=== PATIENT | female | born 1950 | race Hispanic/Latino ===

== ENCOUNTER 2020-05-05 00:04 | Emergency (ER) | payer MEDICARE ==
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
[2020-05-05 02:46] LABS: Basophils % (Auto) 0.7 % (0.0-1.8); Eosinophils # (Auto) 0.1 K/mm3 (0.0-0.4); Eosinophils % (Auto) 2.1 % (0.0-4.3); Hematocrit 38.3 % (30.3-42.9); Hemoglobin 12.6 gm/dl (10.1-14.3); Lymphocytes # (Auto) 1.6 K/mm3 (1.2-5.4); Lymphocytes % (Auto) 33.8 % (13.4-35.0); Mean Corpuscular HGB Conc 33 % (30-34); Mean Corpuscular Volume 91 fl (79-97); Monocytes # (Auto) 0.4 K/mm3 (0.0-0.8); Monocytes % (Auto) 9.2 % (0.0-7.3); Platelet Count 293 K/mm3 (140-440); Red Blood Count 4.23 M/mm3 (3.65-5.03)
[2020-05-05 02:58] LABS: Bacteria,Urine 1+ /HPF (Negative); Bilirubin,Urine NEG (Negative); Blood,Urine NEG (Negative); Color,Urine Straw (Yellow); Mucus,Urine FEW /HPF; Protein,Urine <15 mg/dL mg/dL (Negative); Urobilinogen,Urine < 2.0 mg/dL (<2.0)
[2020-05-05 02:59] LABS: Amphetamine Screen,Urine PRESUMPTIVE NEGATIVE; Benzodiazepines Screen,Urine PRESUMPTIVE NEGATIVE; Cannabinoid Screen,Urine PRESUMPTIVE POSITIVE; Cocaine Screen,Urine PRESUMPTIVE NEGATIVE; Methadone Screen,Urine PRESUMPTIVE NEGATIVE; Opiate Screen,Urine PRESUMPTIVE NEGATIVE
[2020-05-05 03:00] LABS: Alanine Aminotransferase 9 units/L (7-56); Albumin 4.1 g/dL (3.9-5); Blood Urea Nitrogen 11 mg/dL (7-17); Calcium 9.1 mg/dL (8.4-10.2); Hemolysis Index 2
[2020-05-05 03:04] LABS: BUN/Creatinine Ratio 18
--- NOTE | 2020-05-05 03:07 | XRay Report ---
CHEST 1 VIEW INDICATION: "Lung pain" COMPARISON: None FINDINGS: Support devices: None Heart: Normal Lungs/Pleura: No acute pulmonary or pleural findings. IMPRESSION: 1. No acute disease. Signer Name: Dread Philip MD Signed: 05/05/2020 3:03 AM Workstation Name: [id number]
[2020-05-05 03:11] LABS: INR 0.96 (0.87-1.13)
[2020-05-05] MEDS ORDERED: ZIPRASIDONE MESYLATE 20 MG VIAL IM PRN (05:44)
[2020-05-05] MEDS ORDERED: VALSARTAN 40 MG TAB PO SCH (10:00)
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
[2020-05-05] MEDS ORDERED: risperiDONE 0.25 MG TAB PO SCH (12:00)
[2020-05-05 20:29] VITALS: BP 109/57
[2020-05-05] MEDS ORDERED: traZODone 50 MG TAB PO SCH (22:00)
--- NOTE | 2020-05-06 08:11 | Vascular Lab Report ---
DUPLEX DOPPLER LOWER EXTREMITY VEINS, BILATERAL INDICATION / CLINICAL INFORMATION: Bilateral Lower extremity swelling. TECHNIQUE: Duplex doppler imaging was performed through the veins of both lower extremities using hoda ous compression and other maneuvers. COMPARISON: None available. FINDINGS: RIGHT COMMON FEMORAL VEIN: Negative. RIGHT FEMORAL VEIN: Negative. RIGHT POPLITEAL VEIN: Negative. RIGHT CALF VEINS: Negative. LEFT COMMON FEMORAL VEIN: Negative. LEFT FEMORAL VEIN: Negative. LEFT POPLITEAL VEIN: Negative. LEFT CALF VEINS: Negative. ADDITIONAL FINDINGS: Mild bilateral lower leg subcutaneous soft tissue edema. IMPRESSION: 1. No sonographic evidence for DVT in either lower extremity. Signer Name: Loi Perez MD Signed: 05/05/2020 9:04 AM Workstation Name: [id number]
== END 2020-05-05 21:07 | disposition other institution (70) ==
LOC: ED 00:04
DX: F25.0 Schizoaffective disorder, bipolar type (principal); I89.0 Lymphedema, not elsewhere classified; Z88.6 Allergy status to analgesic agent
CPT/HCPCS: 36415; 71045; 80053; 80307; 80320; 81001; 85025; 85610; 93970; G0480; U0003